=== PATIENT | male | born 1990 | race Caucasian/White ===

== ENCOUNTER 2021-07-11 00:44 | Emergency (ER) | payer OTHER ==
[~2021-07-11] VITALS: Ht 182.9 cm; Wt 108.4 kg
[~2021-07-11 00:44] MED LIST: PROC-8 PO; SUCR1ORA2 PO
[2021-07-11 01:02] VITALS: BP 153/101
== END 2021-07-11 02:01 | disposition home or self-care (01) ==
LOC: ER 00:44
DX: U07.1 COVID-19 (principal); R09.89 Other specified symptoms and signs involving the circulatory and respiratory systems; Z79.899 Other long term (current) drug therapy
CPT/HCPCS: 71045; 87635; 93005; 99284; C9803; 99283

== ENCOUNTER 2024-03-14 17:25 | Emergency (ER) | payer OTHER, MEDICARE ==
[~2024-03-14] VITALS: Ht 182.9 cm; Wt 104.0 kg
[2024-03-14 17:37] VITALS: BP 183/62; PULSE 90; RESP 18; TEMP 98.2; O2SAT 97
[2024-03-14] MEDS ORDERED: HYDROcodone/acetaminophen 5mg/325mg tablet PO ONE (18:10)
[2024-03-14] MEDS ORDERED: ketorolac trometh inj. 60 MG/2 ML VIAL IM ONE (18:10)
[2024-03-14] MEDS ORDERED: ketorolac trometh. 30mg/ml inj. IM ONE (18:10)
[2024-03-14] MEDS ORDERED: HYDR-3965 PO (18:20)
== END 2024-03-14 18:46 | disposition home or self-care (01) ==
LOC: ER 17:25
DX: S89.81XA Other specified injuries of right lower leg, initial encounter (principal); X50.0XXA Overexertion from strenuous movement or load, initial encounter; Y93.89 Activity, other specified; Y92.89 Other specified places as the place of occurrence of the external cause; Y99.8 Other external cause status
CPT/HCPCS: 73564; 99283

== ENCOUNTER 2025-01-30 12:38 | Emergency (ER) | payer OTHER, MEDICARE ==
[~2025-01-30] VITALS: Ht 177.8 cm; Wt 106.1 kg
[2025-01-30 14:25] VITALS: BP 129/86; PULSE 73; RESP 16; TEMP 98; O2SAT 98
== END 2025-01-30 14:29 | disposition home or self-care (01) ==
LOC: ER 12:38
DX: S62.606A Fracture of unspecified phalanx of right little finger, initial encounter for closed fracture (principal); Z88.1 Allergy status to other antibiotic agents; W01.0XXA Fall on same level from slipping, tripping and stumbling without subsequent striking against object, initial encounter; Y93.89 Activity, other specified; Y92.89 Other specified places as the place of occurrence of the external cause; Y99.8 Other external cause status
CPT/HCPCS: 29130; 73140; 99283

== ENCOUNTER 2025-02-13 19:49 | Emergency (ER) | payer OTHER, MEDICARE ==
[~2025-02-13] VITALS: Ht 180.3 cm; Wt 74.2 kg
[2025-02-13 19:54] VITALS: BP 158/78; PULSE 86; O2SAT 96
[2025-02-13 20:58] VITALS: RESP 18
[2025-02-13] MEDS: HYDROcodone/acetaminophen 10/325mg tab PO ONE (20:58)
== END 2025-02-13 21:07 | disposition home or self-care (01) ==
LOC: ER 19:50
DX: S62.616A Displaced fracture of proximal phalanx of right little finger, initial encounter for closed fracture (principal); Z88.1 Allergy status to other antibiotic agents; Z88.8 Allergy status to other drugs, medicaments and biological substances; X58.XXXA Exposure to other specified factors, initial encounter; Y93.89 Activity, other specified; Y92.89 Other specified places as the place of occurrence of the external cause; Y99.8 Other external cause status
CPT/HCPCS: 73130; 99283

== ENCOUNTER 2025-10-18 10:21 | Day surgery (SDC) | payer OTHER, MEDICARE ==
[2025-10-12 15:00] LABS: LEUKOCYTE ESTERASE ,URINE NEGATIVE (Neg); NITRITES, URINE NEGATIVE (Neg); OCCULT BLOOD,URINE NEGATIVE (Neg)
--- NOTE | 2025-10-12 15:03 | ELECTROCARDIOGRAPH REPORT ---
[facility] [place] Test Date: 2025-10-12 Test Time: 15:01:16 Pat Name: JUMA CHUN Department: [facility]-PRE-OP Patient ID: [facility]-[id number] Room: Gender: M Carpenter'S Assistant: : 1990 Requested By: HENRIETTA LE Order Number: [id number] Reading MD: Dr. Pedro Luis Weir Measurements Intervals [place] Rate: 62 P: 70 CT: 175 QRS: 54 QRSD: 92 T: 9 QT: 399 QTc: 406 Interpretive Statements Sinus rhythm Abnormal R-wave progression, early transition Electronically Signed On 10-13-2025 13:25:[address] Pedro Luis Weir Please click the below link to view image of tracing.
[2025-10-12 15:04] LABS: UA COLLECTION TYPE VOIDED
[2025-10-18] VITALS (7 sets, daily range): BP systolic 116–166; BP diastolic 79–100; PULSE 65–88; RESP 14–18; TEMP 97.8; O2SAT 95–100
[~2025-10-18] VITALS: Ht 182.9 cm; Wt 106.8 kg
[~2025-10-18 10:21] MED LIST changes: +BUSP10TA11 PO; +LOSA-415 PO; -PROC-8 PO; +SERT25TA PO; -SUCR1ORA2 PO; +VITD400T PO
[2025-10-18] MEDS: ringers solution, lacted 1,000 ML IV SCH (11:36)
[2025-10-18] MEDS: ceFAZolin 2gm/dext,iso 50mL 50 ML IV ONE (11:36)
[2025-10-18] MEDS ORDERED: midazolam 1 mg/ML 2ml injection ONE (13:08)
[2025-10-18] MEDS ORDERED: fentaNYL /PF 50mcg/ml 5ml ampule ONE (13:12)
[2025-10-18] MEDS ORDERED: 0.9 % SODIUM CHLORIDE 10 ML VIAL ONE (13:58)
[2025-10-18] MEDS ORDERED: LIDOcaine 1%/PF 5ML 10 MG/ML VIAL ONE (13:58)
[2025-10-18] MEDS ORDERED: LIDOcaine 2% (20mg/ml) 5ml vial ONE (13:59)
[2025-10-18] MEDS ORDERED: rocuronium 10mg/ml inj IV ONE (13:59)
[2025-10-18] MEDS ORDERED: propofol inj 20 ML IV ONE (13:59)
[2025-10-18] MEDS ORDERED: ePHEDrine 50MG/ML INJ. ONE (13:59)
[2025-10-18] MEDS ORDERED: ROPIVAcaine 0.5% (5mg/ml) 30ml vial ONE (13:59)
[2025-10-18] MEDS ORDERED: dexamethasone sod phosphate 4mg/ml inj. ONE (14:00)
[2025-10-18] MEDS ORDERED: ondansetron/PF 4mg/2ml inj ONE (14:00)
[2025-10-18] MEDS ORDERED: cloNIDine hcl/PF 100mcg/ml inj ONE (14:03)
[2025-10-18] MEDS: vancomycin 1,000mg inj IVT ONE (14:14)
[2025-10-18] MEDS ORDERED: glycopyrrolate 0.2mg/ml inj ONE (16:04)
[2025-10-18] MEDS ORDERED: acetaminophen 1,000mg/100ml IV 100 ML IV PRN (16:20)
[2025-10-18] MEDS ORDERED: hydrALAZINE 20mg/ml inj. IV PRN (16:20)
[2025-10-18] MEDS ORDERED: morphine 4 MG/ML inj SYRINge IV PRN (16:20)
[2025-10-18] MEDS ORDERED: HYDROmorphone/PF 0.2 MG/ML SYRINGE IV PRN ×2 (16:20)
[2025-10-18] MEDS ORDERED: labetalol 20mg/4ml (5mg/ml) syringe IV PRN (16:20)
[2025-10-18] MEDS ORDERED: ringers solution, lacted 1,000 ML IV SCH (16:20)
[2025-10-18] MEDS ORDERED: ondansetron/PF 4mg/2ml inj IV PRN (16:20)
--- NOTE | 2025-10-18 17:00 | OPERATIVE REPORT ---
Operative Report Providers to ~ Date of Procedure: Oct 18, 2025 Pre-Operative Diagnosis: Subacute left distal biceps tear Post-Operative Diagnosis SAME as PRE-Op Procedure Performed Left distal biceps repair Surgeon: Kody Le MD Security Assistant Dr. Grande Anesthesiologist: Luz Weir Type of Anesthesia: General, Regional Findings: Complete tear of the left distal biceps with retraction. After debridement of the the distal biceps tendon, I had approximately six to 7 cm of reasonable tendon. I was able to do a primary repair. Complications None Prosthetics\Implants used: Vera Biomet toggle lock distal biceps button was used for repair Estimated Blood Loss: Minimal. Tourniquet time was 80 minutes at 250 mmHg Specimen Removed: Not Description of Procedure: Patient is brought to the operating. Placed in a supine position. Preoperative antibiotics of 2 g of Ancef were given. General plus regional anesthesia was performed. Patient was maintained supine. Bony prominences were well padded. Bilateral lower extremity SCDs were placed. The left upper extremity was prepped and draped in the usual sterile fashion. A sterile tourniquet was utilized. A time-out procedure was performed as per routine identifying the patient, site to be operated on, and procedure to be performed. Confirmed that we are operating on the left arm, distal biceps repair versus reconstruction with allograft, 2 g of Ancef, regional block to the left upper extremity. Dr. Ching political science research assistant on this case. His assistance was necessary especially because of the need for tying off multiple vessels and providing adequate visualization of the distal biceps insertion. Also, repairing the biceps requires a fair amount of suturing and again his assistance to hold the biceps while I did the complex suturing was required. I began the case with using an Esmarch tourniquet to exsanguinate the limb. Tourniquet was inflated to 250 mmHg. I then placed the arm into full extension. I made a curvilinear incision starting over the bicipital tuberosity, crossing the elbow flexion crease at a slight angle and then proceeding a short distance up the medial arm. Sharp dissection was carried out through skin and subcutaneous tissue to make full-thickness medial and lateral skin flaps. Proximal dissection brought me down to the deep fascia. Coming through the fascia in that area, I encountered hematoma. Immediately within that hematoma area there was distal biceps. An Allis clamp was placed on it. I could traction it distally to visualize that there was a fair amount of tendon left. Before completing that dissection, I turned my attention distally. Venous structures were tied off in the antecubital fossa area. This was to allow me to deeper dissection. I identified the lateral antebrachial cutaneous nerve. A vessel loop was placed around this for visualization. Care was taken to try and protect as many of the branches as possible. Deeper dissection brought me down to the recurrent radial artery. I tied off branches that were crossing my field to get to the bicipital tuberosity. Using finger palpation, I could palpate the bicipital tuberosity so I continued blunt dissection towards that. Eventually, I could place a baby Reyes retractor medially and carefully laterally. Dr. Ching did not excessive traction on that lateral retractor to protect the posterior interosseous nerve. I had good visualization of the bicipital tuberosity. With the forearm in maximal supination, I placed a [place] elevator on the bicipital tuberosity and took a fluoroscopic image. I was centered nicely on the bicipital tuberosity. I debrided it of any tendon remnants. At this point, I turned my attention proximally to the biceps tendon. With an Allis clamp on the distal biceps, I traction it distally. A proximally 1-1/2 cm of the remnant looked like very poor tendon tissue so I used a sterile tongue depressor and placed it under the tendon. With a clean 10 blade, I resected that portion of the tendon. This left me with a proximally 6-1/2-7 cm of good tendon distal to the myotendinous junction. I felt this was adequate to attempt to repair. Using the express Braid suture loop, I made a whipstitch starting proximally on the tendon proximally 3-4 cm and proceeded with a whipstitch distally. I pulled distal traction and had excellent purchase of the tendon. While doing this, I used my fingers to free up the superficial and deep portions of the biceps to allow it it good mobility. With the elbow in flexion, I pulled the tendon distally and could see that I could reach the bicipital tuberosity relatively easily. I decided to proceed with a primary repair at this point. Using a tendon Sizer, I trimmed the distal portion of the biceps. Ultimately, I was able to slide it through a 7 mm hole. Thus I would use a 7 mm Reamer on the bicipital tuberosity. I then turned my attention distally again to prepare the bicipital tuberosity. With retractors carefully placed especially the lateral retractor, Dr. De Leon held the forearm in full supination. I then placed a guide pin on the volar cortex of the bicipital tuberosity and checked its position under fluoroscopy. Then under power, I drilled the guide pin bicortically heading slightly ulnarly and slightly distally to prevent injury to the posterior interosseous nerve. I achieved bicortical bite on the drill. I then confirmed its position on C-arm. I was happy with its overall position. I then used a 7 mm Reamer and I marked it at the 10 mm depth. I then reamed unicortically. I did get down to the 10 mm depth. I then thoroughly irrigated the area to remove any bony debris to prevent formation of the synostosis. I then used the Vera Biomet toggle lock distal biceps button and deployed it on the far cortex and flipped it successfully. Fluoroscopy showed that it was resting up against the far cortex nicely without any intervening tissue. At this point, I then used the suture from the express Braid that I placed through the biceps tendon and I secured this to the sutures from the toggle lock implant. Using the secondary sutures from the implant, I used a Krackow suture pattern and went from distal to proximal on each side of the tendon and tied those two sutures together as a secondary fixation of the implant to the tendon. At this point, the biceps was secured to the sutures going through the implant. Tourniquet was now let down at 80 minutes of tourniquet time. Elbow was placed into approximately 70 of elbow flexion. I pulled on the zip loop sutures from the implant and the shuttled the tendon down towards the tunnel drilled in the volar radius. It dunked into the tunnel nicely and securely. I pulled firmly and the sutures would not slide any further and the tendon was docked nicely. Those suture strands were cut. It was taken into near full extension, approximately 20 short of full extension and the repair was solid. Fluoroscopy was taken both on an AP and lateral view and I was happy with the button position and the security of the to the far cortex. Those images were saved. The wound was now thoroughly irrigated with 3 L of pulse lavage irrigation. Adequate hemostasis was obtained. No excessive bleeding. I did use some Vistaseal in the wound. 1 g of vancomycin powder was sprinkled in the wound. I then proceeded with closure. Deep layers were closed with 0 Vicryl suture, subcutaneous layers were closed with 2-0 Vicryl suture and skin was closed with 3-0 nylon suture in a horizontal mattress pattern. Sterile dressings were katie lied. Final sponge and needle counts were correct. Patient a palpable pulse at the end of surgery. Good capillary refill. Arm was protected in a long-arm posterior splint at 90 of elbow flexion and arm was then placed in a sling. Patient was thereafter recovered without complications and sent to recovery in good condition. Patient was seen in recovery with a pulse oximeter on the surgical side. He had good waveform and good 97% pulse ox reading. Counts repoted as correct: Yes X-Ray findings: Per PAT Cond no x-ray KODY LE MD Oct 18, 2025 17:00
== END 2025-10-18 17:26 | disposition home or self-care (01) ==
LOC: PAS 10:21
PROVIDERS: ATTEND Specialist
DX: S46.212A Strain of muscle, fascia and tendon of other parts of biceps, left arm, initial encounter (principal); F41.9 Anxiety disorder, unspecified; F32.A Depression, unspecified; I10 Essential (primary) hypertension; K85.90 Acute pancreatitis without necrosis or infection, unspecified; K29.70 Gastritis, unspecified, without bleeding; R94.31 Abnormal electrocardiogram [ECG] [EKG]; X58.XXXA Exposure to other specified factors, initial encounter; Y93.89 Activity, other specified; Y92.89 Other specified places as the place of occurrence of the external cause; Y99.8 Other external cause status; Z98.890 Other specified postprocedural states
CPT/HCPCS: 24342; 73080; 76000; 81003; 82948; 93005; C1713; J0735; J1100; J2003; J2250; J2405; J2704; J2710; J2795; J3010; J3373; J3490; J7030; J7120; Z7506; Z7508; Z7512; A4215; A4565; A4618; A6253; A6449; A6455; A7000